=== PATIENT | female | born 2000 | race Caucasian/White ===

== ENCOUNTER 2021-01-20 12:18 | Emergency (ER) | payer BC ==
[~2021-01-20] VITALS: Ht 167.6 cm; Wt 81.4 kg
[2021-01-20 12:23] VITALS: Ht 167.6 cm; Wt 81.4 kg
[2021-01-20] MEDS ORDERED: OMEPRAZOLE40 MG PO (12:24)
[2021-01-20 13:21] LABS: BASOPHILS 0.1 % (0-2); EOSINOPHILS 0.2 % (0-7); HEMATOCRIT 39.3 % (36.0-48.0); HEMOGLOBIN 12.2 g/dL (12-16); IMMATURE GRANULOCYTES 0.1 % (0-5); LYMPHOCYTE ABS# 2.26 10x3/uL (1.18-3.74); LYMPHOCYTES 25.3 % (15-50); MCV 77.4 fL (80.0-100.0); MEAN PLATELET VOLUME 10.7 fL (7.4-10.4); MONOCYTES 4.9 % (2-11); NEUTROPHIL ABS# 6.21 10x3/uL (1.56-6.13); NEUTROPHILS 69.4 % (40-80); PLATELET COUNT 318 10x3/uL (130-400); RBC 5.08 10x6/uL (4.00-5.40); RDW 16.5 % (11.5-14.5)
[2021-01-20 13:32] LABS: CALC OSMOLALITY 278 mosm/kg (275-300); CALCIUM 9.6 mg/dL (8.5-10.1); CARBON DIOXIDE 25.2 mmol/L (21.0-32.0); CHLORIDE - SERUM 104 mmol/L (98-107); CREATININE - SERUM 0.8 mg/dL (0.6-1.3); GLUCOSE 107 mg/dL (74-106); POTASSIUM - SERUM 3.5 mmol/L (3.5-5.1); SODIUM 140 mmol/L (136-145); UREA NITROGEN 12 mg/dL (7-18); eGFR NON AFRICAN AMERICAN > 90 mL/min (90-120)
[2021-01-20 13:37] LABS: HCG SERUM NEGATIVE (NEGATIVE)
[2021-01-20 13:38] LABS: ALBUMIN 4.3 g/dL (3.4-5.0); ALKALINE PHOSPHATASE 58 U/L (30-120); ALT (SGPT) 14 U/L (10-68); AMYLASE - SERUM 36 U/L (25-115); BILIRUBIN - TOTAL 0.41 mg/dL (0.2-1.3); LIPASE 81 U/L (73-393); PROTEIN - SERUM 7.9 g/dL (6.4-8.2)
[2021-01-20] MEDS ORDERED: REGLAN5 MG PO (14:24)
[2021-01-20] MEDS ORDERED: PEPCID AC20 MG PO (14:24)
[2021-01-20 15:19] LABS: BILIRUBIN NEGATIVE (NEGATIVE); KETONE LARGE mg/dL (NEGATIVE); NITRITE NEGATIVE (NEGATIVE); UROBILINOGEN NORMAL mg/dL (< 2)
[2021-01-20 17:50] VITALS: BP 112/68
== END 2021-01-20 15:57 | disposition home or self-care (01) ==
LOC: D.ER 12:18
PROVIDERS: Family Medicine
DX: K29.70 Gastritis, unspecified, without bleeding (principal); R11.2 Nausea with vomiting, unspecified